=== PATIENT | male | born 1940 | race Two or more races ===

== ENCOUNTER 2021-03-23 21:26 | Emergency (ER) | payer OTHER ==
[~2021-03-23] VITALS: Ht 165.1 cm; Wt 78.9 kg
[2021-03-23 22:34] LABS: Urine Bacteria FEW /hpf (None Seen); Urine Blood 2+ /uL (Negative); Urine Budding Yeast MODERATE /hpf (None Seen); Urine Specific Gravity 1.015 (1.001-1.035); Urine WBC 66 /hpf (0 - 3)
[2021-03-23 23:15] VITALS: BP 167/97
== END 2021-03-23 22:53 | disposition home or self-care (01) ==
LOC: ER 21:30
DX: N39.0 Urinary tract infection, site not specified (principal); R33.9 Retention of urine, unspecified
CPT/HCPCS: 51702; 81001